=== PATIENT | male | born 1980 | race Asian ===

== ENCOUNTER 2017-11-14 20:42 | Emergency (ER) | payer SELFPAY ==
[~2017-11-14] VITALS: Ht 182.9 cm; Wt 128.0 kg
[2017-11-15 04:00] VITALS: BP 129/71
== END 2017-11-15 04:10 | disposition home or self-care (01) ==
LOC: ER 20:42
DX: S93.401A Sprain of unspecified ligament of right ankle, initial encounter (principal); N48.1 Balanitis; F17.200 Nicotine dependence, unspecified, uncomplicated; R94.31 Abnormal electrocardiogram [ECG] [EKG]; W01.0XXA Fall on same level from slipping, tripping and stumbling without subsequent striking against object, initial encounter; Y93.89 Activity, other specified; Y92.89 Other specified places as the place of occurrence of the external cause; Y99.8 Other external cause status; Z79.899 Other long term (current) drug therapy
CPT/HCPCS: 73610; 82962; 93005; 99284